=== PATIENT | female | born 1955 | race Hispanic/Latino ===

== ENCOUNTER → 2019-08-18 | Outpatient (CLI) | payer MEDICARE | END | disposition home or self-care (01) | LOC: RAH 10:57 | PROVIDERS: ATTEND Family Medicine | DX: G31.9 Degenerative disease of nervous system, unspecified (principal); R51 Headache | CPT/HCPCS: 70450 ==

== ENCOUNTER 2022-04-11 05:36 | Observation (INO) | payer MEDICARE ==
[2022-04-10 13:36] LABS: BASOPHILS % (AUTO) 0.6 % (0.0-5.0); EOSINOPHILS % (AUTO) 2.2 % (0.0-8.0); HEMATOCRIT 46.2 % (36-48); LYMPHOCYTES % (AUTO) 46.1 % (21.0-51.0); MEAN CORPUSCULAR HEMOGLOBIN 28.5 pg (27.0-33.0); MEAN CORPUSCULAR HGB CONC 32.9 g/dL (32.0-36.0); MEAN CORPUSCULAR VOLUME 86.5 fL (79-99); MONOCYTES % (AUTO) 7.9 % (3.0-13.0); PLATELET COUNT (AUTO) 449 K/uL (130-400); RED BLOOD CELL COUNT(AUTO) 5.34 MIL/uL (4.00-5.50); RED CELL DISTRIBUTION WIDTH 13.8 % (11.0-15.5)
[2022-04-10 13:43] VITALS: BP 147/76
[2022-04-10 13:48] LABS: APPEARANCE,URINE CLEAR (CLEAR); BILIRUBIN,URINE NEGATIVE (NEGATIVE); COLOR,URINE YELLOW (YELLOW); GLUCOSE, URINE (UA) NEGATIVE (NEGATIVE); KETONES,URINE 5 mg/dL (NEGATIVE); LEUKOCYTE ESTERASE ,URINE NEGATIVE (NEGATIVE); NITRATE,URINE NEGATIVE (NEGATIVE); OCCULT BLOOD,URINE TRACE-INTACT (NEGATIVE); PROTEIN,URINE NEGATIVE (NEGATIVE); UROBILINOGEN,URINE 0.2 mg/dL (0.2-1.0)
[2022-04-10 13:49] LABS: CREATININE 0.6 mg/dL (0.5-1.5); INR 0.95 (0.85-1.15); POTASSIUM 4.1 mmol/L (3.5-5.1); PROTHROMBIN TIME 10.4 SEC (9.6-11.6)
[2022-04-10 13:50] LABS: PARTIAL THROMBOPLASTIN TIME 26.6 SEC (26.3-35.5)
[2022-04-10 13:52] LABS: BACTERIA,URINE Rare /HPF (None Seen); RBC,URINE 0-1 /HPF (0-1); SQUAMOUS EPITHELIAL CELL,UR Few /HPF (0-2); WBC,URINE 0-1 /HPF (0-1)
[2022-04-10 16:59] VITALS: BP 147/76
[2022-04-11] VITALS (24 sets, daily range): BP systolic 110–140; BP diastolic 57–89
[~2022-04-11] VITALS: Ht 160 cm; Wt 71.0 kg
[2022-04-11] MEDS ORDERED: CEFAZOLIN SODIUM 1 GM VIAL ONE (05:46)
[2022-04-11] MEDS ORDERED: 0.9%NACL 1000ML 1,000 ML IV ONE (05:46)
[2022-04-11] MEDS ORDERED: OMEP40CA21 PO (06:51)
[2022-04-11] MEDS ORDERED: CALC-1174 PO (06:51)
[2022-04-11] MEDS ORDERED: ASPI-1443 PO (06:51)
[2022-04-11] MEDS ORDERED: GLIP5TAB11 PO (06:51)
[2022-04-11] MEDS ORDERED: FOLI0.8T3 PO (06:51)
[2022-04-11] MEDS ORDERED: ATOR40TA71 PO (06:51)
[2022-04-11] MEDS ORDERED: CEFAZOLIN SODIUM 1 GM VIAL IVP ONE (08:00)
[2022-04-11] MEDS ORDERED: LACTATED RINGERS 1000ML 1,000 ML IV SCH (08:00)
[2022-04-11] MEDS ORDERED: ONDANSETRON 4MG INJ ONE (08:15)
[2022-04-11] MEDS ORDERED: DEXAMETHASONE SOD PHOSPHATE 10MG/ML 1ML VIAL ONE (08:15)
[2022-04-11] MEDS ORDERED: SUCCINYLCHOLINE 200MG/10ML SYR ONE (08:15)
[2022-04-11] MEDS ORDERED: PROPOFOL 10 MG/ML 20ML VIAL IV ONE (08:15)
[2022-04-11] MEDS ORDERED: LIDOCAINE PF 100MG/5ML (2%) SYRINGE 5ML ONE (08:15)
[2022-04-11] MEDS ORDERED: GLYCOPYRROLATE 1 MG/5 ML SYRINGE ONE (08:15)
[2022-04-11] MEDS ORDERED: ROCURONIUM 10MG/1ML SYR 10 MG/ML ML ONE (08:16)
[2022-04-11] MEDS ORDERED: MIDAZOLAM HCL 1 MG/ML 2ML VIAL ONE (08:16)
[2022-04-11] MEDS ORDERED: NEOSTIGMINE 5MG/5ML SYR IV ONE (08:16)
[2022-04-11] MEDS ORDERED: FENTANYL CITRATE PF 50 MCG/1 ML 2ML VIAL ONE (08:41)
[2022-04-11] MEDS ORDERED: CEFAZOLIN SODIUM 2 GM VIAL IV ONE (08:43)
[2022-04-11] MEDS ORDERED: MEPERIDINE-PF 25 MG/ML SYG ONE ×2 (10:19→10:29)
[2022-04-11] MEDS ORDERED: SIMETHICONE 80 MG TAB.CHEW PO PRN (12:30)
[2022-04-11] MEDS ORDERED: IBUPROFEN 600 MG TABLET PO PRN (12:30)
[2022-04-11] MEDS ORDERED: ONDANSETRON 4MG INJ IVP PRN (12:30)
[2022-04-11] MEDS ORDERED: BISACODYL 10 MG SUPP.RECT RC PRN (12:30)
[2022-04-11] MEDS ORDERED: ACETAMINOPHEN WITH CODEINE 1 TAB TAB PO PRN (12:30)
[2022-04-11] MEDS ORDERED: DOCUSATE SODIUM 100 MG CAP PO PRN (12:30)
[2022-04-11] MEDS ORDERED: PROMETHAZINE HCL 25 MG/ML 1ML AMPULE IM PRN (12:30)
[2022-04-11] MEDS ORDERED: MEPERIDINE-PF 75 MG/ML SYG ONE (12:31)
[2022-04-11] MEDS: PROMETHAZINE HCL 25 MG/ML 1ML AMPULE IM PRN ×3 (13:09→23:17)
[2022-04-11] MEDS: MEPERIDINE-PF 75 MG/ML SYG IM PRN ×3 (13:10→23:19)
[2022-04-11] MEDS: LACTATED RINGERS 1000ML 1,000 ML IV SCH ×2 (14:54→19:26)
[2022-04-11] MEDS: INSULIN HUMULIN R 100 UNIT/ML 3ML SQ SCH ×2 (16:30→21:00)
[2022-04-12] MEDS: LACTATED RINGERS 1000ML 1,000 ML IV SCH ×2 (03:04→10:57)
[2022-04-12 04:33] VITALS: BP 118/72
[2022-04-12] MEDS ORDERED: HYDROCODONE/ACETAMINOPHEN 5/325 MG TAB PO PRN (05:00)
[2022-04-12] MEDS ORDERED: BISACODYL 10 MG SUPP.RECT RC PRN (05:00)
[2022-04-12] MEDS ORDERED: ACETAMINOPHEN WITH CODEINE 1 TAB TAB PO PRN (05:00)
[2022-04-12 05:15] LABS: HEMATOCRIT 40.6 % (36-48); MEAN CORPUSCULAR HEMOGLOBIN 28.1 pg (27.0-33.0); MEAN CORPUSCULAR VOLUME 87.7 fL (79-99); RED BLOOD CELL COUNT(AUTO) 4.63 MIL/uL (4.00-5.50); WHITE BLOOD COUNT (AUTO) 13.3 K/uL (4.8-10.8)
[2022-04-12] MEDS: INSULIN HUMULIN R 100 UNIT/ML 3ML SQ SCH ×4 (06:31→21:00)
[2022-04-12 07:35] VITALS: BP 122/65
[2022-04-12] MEDS: SIMETHICONE 80 MG TAB.CHEW PO PRN ×4 (08:39→21:15)
[2022-04-12] MEDS: NITROFURANTOIN MONOHYD/M-CRYST 100 MG CAPSULE PO SCH ×2 (08:40→21:16)
[2022-04-12] MEDS: DOCUSATE SODIUM 100 MG CAP PO PRN ×2 (08:40→21:16)
[2022-04-12] MEDS: IBUPROFEN 800 MG TAB PO PRN ×3 (08:42→21:16)
[2022-04-12 11:30] VITALS: BP_SYST 108; BP_SYST 117; BP_DIAS 63; BP_DIAS 71
[2022-04-12 16:00] VITALS: BP 117/65
[2022-04-12 19:24] VITALS: BP 111/68
[2022-04-12 22:45] VITALS: BP 101/50
[2022-04-13 02:54] VITALS: BP 106/62
[2022-04-13] MEDS: IBUPROFEN 800 MG TAB PO PRN ×2 (04:03→10:38)
[2022-04-13] MEDS: INSULIN HUMULIN R 100 UNIT/ML 3ML SQ SCH ×2 (07:30→11:30)
[2022-04-13 07:36] VITALS: BP 116/54
[2022-04-13] MEDS: NITROFURANTOIN MONOHYD/M-CRYST 100 MG CAPSULE PO SCH (08:41)
[2022-04-13] MEDS: DOCUSATE SODIUM 100 MG CAP PO PRN (08:41)
[2022-04-13] MEDS: SIMETHICONE 80 MG TAB.CHEW PO PRN (08:41)
[2022-04-13] MEDS ORDERED: ACET-2079 PO (11:20)
[2022-04-13] MEDS ORDERED: DOCU-116 PO (11:20)
[2022-04-13 11:21] VITALS: BP 125/70
[2022-04-13] MEDS ORDERED: MACR100 PO (11:21)
== END 2022-04-13 16:15 | disposition home or self-care (01) ==
LOC: DAH 05:36 → DAHIP 05:37 → DAH 05:37 → WSH 11:15
PROVIDERS: ADMIT Obstetrics & Gynecology; ATTEND Obstetrics & Gynecology
DX: N87.9 Dysplasia of cervix uteri, unspecified (principal); Z20.822 Contact with and (suspected) exposure to COVID-19; N81.4 Uterovaginal prolapse, unspecified; K46.9 Unspecified abdominal hernia without obstruction or gangrene; Z79.899 Other long term (current) drug therapy; Z98.890 Other specified postprocedural states
CPT/HCPCS: 80048; 85025; 85610; 85730; 86850; 86900; 86901; 87426; 81001; 36415 ×2; 93005; 96372; 58263; 57265; 57288; 82948 ×11; 85027; A6260; G0378 ×56; G0379; A4663; A4351; A4606; A4344; J0690 ×2; J3010; J0330; J3490; J1100; J2710; J7030; J2550 ×2; J2001; J2250; J2704; J2405; J2175 ×5; C1771; A4215; A4223; A4222; A4221; J7120 ×2; A4600

== ENCOUNTER → 2023-11-09 | Outpatient (CLI) | payer MEDICARE ==
[~2023-11-09] MED LIST: ACET-2079 PO; ATOR40TA71 PO; CALC-1174 PO; DOCU-116 PO; FOLI0.8T3 PO; GLIP5TAB15 PO; MACR100 PO; OMEP40CA21 PO
== END | disposition home or self-care (01) ==
LOC: RAH 08:12
PROVIDERS: ATTEND Physician Assistant
DX: N28.1 Cyst of kidney, acquired (principal); K76.0 Fatty (change of) liver, not elsewhere classified; Z90.49 Acquired absence of other specified parts of digestive tract; Z90.81 Acquired absence of spleen
CPT/HCPCS: 76700

== ENCOUNTER → 2023-12-07 | Outpatient (CLI) | payer MEDICARE | END | disposition home or self-care (01) | LOC: RAH 10:30 | PROVIDERS: ATTEND Physician Assistant | DX: R10.9 Unspecified abdominal pain (principal); Z90.49 Acquired absence of other specified parts of digestive tract | CPT/HCPCS: 78226; A9537 ==